=== PATIENT | female | born 1935 | race Caucasian/White ===

== ENCOUNTER 2018-11-12 11:01 | Emergency (ER) | payer MEDICARE ==
[2018-11-12 11:23] VITALS: BP 139/78
--- NOTE | 2018-11-12 11:50 | UC ---
Shortness of Breath HPI - HPI Summary HPI Summary: 82-year-old female presents with a two-week history of increased shortness of breath over the past 2 weeks. States she is becoming short of breath with minimal exertion and has been noticing increased swelling to her bilateral feet and ankles. She has a history of atrial fibrillation states that she has felt as if her heart was racing at times. Occasional nonproductive cough. Denies fever, chills, dizziness, weakness, diaphoresis, chest pain, abdominal pain, nausea, vomiting. - History of Current Complaint Chief Complaint: UCRespiratory Stated Complaint: SOB Time Seen by Provider: 11/12/18 11:07 - Allergy/Home Medications Allergies/Adverse Reactions: Allergies Allergy/AdvReac Type Severity Reaction Status Date / Time No Known Allergies Allergy Verified 11/12/18 11:23 Home Medications: Home Medications Atorvastatin* [Lipitor*] 10 mg PO 1700 11/12/18 [History Confirmed 11/12/18] Levothyroxine TAB* [Synthroid TAB*] 88 mcg PO 0800 11/12/18 [History Confirmed 11/12/18] Metoprolol Tartrate TAB* [Lopressor TAB*] 100 mg PO BID 11/12/18 [History Confirmed 11/12/18] Rivaroxaban TAB(*) [Xarelto 20 mg] 20 mg PO DAILY 11/12/18 [History Confirmed ] amLODIPine TAB* [Norvasc 5 mg TAB*] 10 mg PO DAILY 11/12/18 [History Confirmed 11/12/18] metFORMIN* [Glucophage 500 MG TAB *] 1,000 mg PO BID 11/12/18 [History Confirmed 11/12/18] prednisoLONE 1% OPHTH.SUSP* [Pred Forte 1%*] 1 drop .SEE ORDER DAILY 11/12/18 [ History Confirmed 11/12/18] PMH/Surg Hx/FS Hx/Imm Hx - Additional Past Medical History Additional PMH: Rheumatoid arthritis Endocrine History: Hypothyroidism Cardiovascular History: Cardiac Disease, Hypertension, Atrial Fibrillation - Surgical History Surgical History: Yes Surgery Procedure, Year, and Place: rotator cuff, carpal tunnel, cornea transplant - Family History Known Family History: Positive: Cardiac Disease, Hypertension - Social History Occupation: Retired Lives: Alone Alcohol Use: None Substance Use Type: None Smoking Status (MU): Never Smoked Tobacco Review of Systems All Other Systems Reviewed And Are Negative: Yes Constitutional: Negative: Fever, Chills Respiratory: Positive: Shortness Of Breath, Cough Cardiovascular: Positive: Palpitations. Negative: Chest Pain Gastrointestinal: Negative: Abdominal Pain, Vomiting, Nausea Musculoskeletal: Positive: Edema Neurological: Positive: Negative Is Patient Immunocompromised?: No Physical Exam - Summary Physical Exam Summary: GENERAL APPEARANCE: Well developed, well nourished, alert and cooperative, and appears to be in no acute distress. CARDIAC: Normal S1 and S2. No S3, S4 or murmurs. Rhythm is irregularly irregular. 1+ pitting edema to bilateral feet and ankles. There is no cyanosis or pallor. Extremities are warm and well perfused. Capillary refill is less than 2 seconds. LUNGS: Clear to auscultation and percussion without rales, rhonchi, wheezing or diminished breath sounds. ABDOMEN: Positive bowel sounds. Soft, nondistended, nontender. No guarding or rebound. No masses or hepatosplenomegally. MUSKULOSKELETAL: ROM intact to all extremities. No joint erythema or tenderness. Normal muscular development. Normal gait. SKIN: Skin normal color, texture and turgor with no lesions or eruptions. Triage Information Reviewed: Yes Vital Signs: Initial Vital Signs Temp 98.7 F 11/12/18 11:10 Pulse 100 11/12/18 11:10 Resp 16 11/12/18 11:10 BP 139/78 11/12/18 11:10 Pulse Ox 96 11/12/18 11:10 Vital Signs Reviewed: Yes Diagnostics - EKG Cardiac Rate: NL Cardiac Rhythm: AFib: Normal, LBBB: New Ectopy: None ST Segment: Normal EKG Comparison: Other - Comparison EKG from 2004. New onset of LBBB Shortness of Breath Dx - Course Course Of Treatment: 82-year-old female presents with a two-week history of increased shortness of breath over the past 2 weeks. States she is becoming short of breath with minimal exertion and has been noticing increased swelling to her bilateral feet and ankles. She has a history of atrial fibrillation states that she has felt as if her heart was racing at times. Occasional nonproductive cough. Denies fever, chills, dizziness, weakness, diaphoresis, chest pain, abdominal pain, nausea, vomiting. Afebrile. Vital signs stable. Exam reveals female patient in no acute distress, irregular heart rate without murmur or extra sounds, bilateral breath sounds clear, 1+ edema to bilateral feet and ankles, EKG shows atrial fibrillation with a left bundle branch block which is new when compared to EKG from 2005. I recommended that she be transferred via ambulance to the emergency room for further evaluation. The patient has declined ambulance transfer. The patient is clinically sober, free from distracting injury, appears to have insight and reasoning and in my judgement has capacity to make decisions. I have explained that I am concerned this may represent a recent myocardial infarction. I have explained my concerns and the patient has verbalized understanding of my concerns. I have recommended transfer to ED via ambulance for patient and public safety and that she could get much worse, could become critically ill and suffer disability and possibly . Patient states she is agreeable to ED evaluation but continues to refuse ambulance transfer at this time and therefore is leaving against medical advice. I spoke with BARRETT Goel in the ED and she will be expecting patient. - Differential Dx/Diagnosis Provider Diagnosis: Shortness of breath, Lower extremity edema Discharge - Sign-Out/Discharge Documenting (check all that apply): Patient Departure All imaging exams completed and their final reports reviewed: No Studies - Discharge Plan Condition: Guarded Disposition: AGAINST MEDICAL ADVICE Patient Education Materials: Dyspnea (ED) Referrals: No Primary Care Phys,NOPCP [Primary Care Provider] - Additional Instructions: I am advising that you transfer to the emergency room via ambulance for further evaluation. You have chosen to sign out against medical advice and drive yourself to the emergency room. - Billing Disposition and Condition Condition: GUARDED Disposition: Against Medical Advice
== END 2018-11-12 11:32 | disposition left against medical advice (07) ==
LOC: UCEAST 11:01
DX: R06.02 Shortness of breath (principal); R60.9 Edema, unspecified; E03.9 Hypothyroidism, unspecified; I10 Essential (primary) hypertension
CPT/HCPCS: 93005; 99212; G0463

== ENCOUNTER 2018-11-12 11:57 | Inpatient (IN) | payer MEDICARE ==
[2018-11-12 12:49] LABS: ABS Basophils 0.1 10^3/ul (0-0.2); ABS Eosinophils 0.1 10^3/ul (0-0.6); ABS Lymphocytes 2.6 10^3/ul (1.0-4.8); ABS Monocytes 0.7 10^3/ul (0-0.8); ABS Neutrophils 3.2 10^3/ul (1.5-7.7); ABS Nucleated RBC 0 10^3/ul; Eosinophil % 1.5 %; Hematocrit 39 % (35-47); Hemoglobin 12.7 g/dl (12.0-16.0); Mean Corpuscular HGB Conc 33 g/dl (31-36); Mean Corpuscular Hemoglobin 28 pg (27-31); Mean Corpuscular Volume 86 fL (80-97); Mean Platelet Volume 7.6 fL (7.4-10.4); Nucleated Red Blood Cells % 0.1; Platelet Count 196 10^3/ul (150-450); Red Blood Count 4.48 10^6/ul (4.00-5.40); Red Cell Distribution Width 16 % (10.5-15); White Blood Count 6.6 10^3/ul (3.5-10.8)
[2018-11-12 12:58] LABS: Activated Partial Thrombo Time 31.3 seconds (26.0-36.3); INR 1.16 (0.77-1.02)
--- NOTE | 2018-11-12 13:00 | ED ---
Shortness of Breath - HPI Summary HPI Summary: A 82 y/o female presents to the ED c/o SOB. In the ED room, the patient has a pulse of 112 BPM and O2 saturation of 94%. According to the patient, she has had SOB at rest and exertion, but she stated that she also has ankle swelling for the past three weeks. She stated she also has been experiencing a cough that lasted about a month with flem, but not currently. She denies any chest pain or tightness, fevers, diaphoresis, but does have chills. She also had no weight change recently. She did stated that her feet hurt. No PMHx of ND. Home Medications Medication Instructions Recorded Confirmed Type Atorvastatin* [Lipitor*] 10 mg PO 1700 11/12/18 11/12/18 History Levothyroxine TAB* [Synthroid TAB*] 88 mcg PO 0800 11/12/18 11/12/18 History Metoprolol Tartrate TAB* 100 mg PO BID 11/12/18 11/12/18 History [Lopressor TAB*] Rivaroxaban TAB(*) [Xarelto 20 mg] 20 mg PO DAILY 11/12/18 11/12/18 History amLODIPine TAB* [Norvasc 5 mg TAB*] 10 mg PO DAILY 11/12/18 11/12/18 History metFORMIN* [Glucophage 500 MG TAB 1,000 mg PO BID 11/12/18 11/12/18 History *] prednisoLONE 1% OPHTH.SUSP* [Pred 1 drop .SEE ORDER DAILY 11/12/18 11/12/18 History Forte 1%*] - History of Current Complaint Chief Complaint: EDShortnessOfBreath Time Seen by Provider: 11/12/18 12:30 Hx Obtained From: Patient Onset/Duration: Lasting Days, Still Present Timing: Constant Dyspnea At: Exertion Aggrevating Factors: Nothing Alleviating Factors: Nothing Associated Signs & Symptoms: Cough (Productive), Chills - Allergy/Home Medications Allergies/Adverse Reactions: Allergies Allergy/AdvReac Type Severity Reaction Status Date / Time No Known Allergies Allergy Verified 11/12/18 11:23 PMH/Surg Hx/FS Hx/Imm Hx Endocrine/Hematology History: Reports: Hx Diabetes, Hx Thyroid Disease Cardiovascular History: Reports: Hx Hypertension - Surgical History Surgery Procedure, Year, and Place: rotator cuff, carpal tunnel, cornea transplant Infectious Disease History: No Infectious Disease History: Denies: Traveled Outside the [place] in Last 30 Days - Family History Known Family History: Positive: Cardiac Disease, Hypertension - Social History Alcohol Use: None Substance Use Type: Reports: None Smoking Status (MU): Never Smoked Tobacco Review of Systems Positive: Chills. Negative: Fever, Skin Diaphoresis Negative: Erythema Negative: Sore Throat Negative: Chest Pain Positive: Shortness Of Breath, Cough Negative: Abdominal Pain, Vomiting, Nausea Negative: dysuria, hematuria Negative: Myalgia, Edema Negative: Rash Neurological: Other - NEGATIVE: DIZZINESS All Other Systems Reviewed And Are Negative: Yes Physical Exam - Summary Physical Exam Summary: Constitutional: Well-developed, Well-nourished, Alert. (-) Distressed Skin: Warm, Dry HENT: Normocephalic; Atraumatic Eyes: Conjunctiva normal Neck: Musculoskeletal ROM normal neck. (-) JVD, (-) Stridor, (-) Tracheal deviation Cardio: Rhythm regular, rate normal, Heart sounds normal; Intact distal pulses; The pedal pulses are 2+ and symmetric. Radial pulses are 2+ and symmetric. (-) Murmur Pulmonary/Chest wall: bilateral rales Abd: Soft, (-) epigastric tenderness, (-) Distension, (-) Guarding, (-) Rebound Musculoskeletal: 1+ pedal edema Lymph: (-) Cervical adenopathy Neuro: Alert, Oriented x3 Psych: Mood and affect Normal Triage Information Reviewed: Yes Vital Signs On Initial Exam: Initial Vitals Temp Pulse Resp BP Pulse Ox 98.5 F 100 20 137/85 97 11/12/18 12:12 11/12/18 12:12 11/12/18 12:12 11/12/18 12:12 11/12/18 12:12 Vital Signs Reviewed: Yes Diagnostics - Vital Signs Vital Signs Temp Pulse Resp BP Pulse Ox 11/12/18 12:12 98.5 F 100 20 137/85 97 - Laboratory Lab Results: Lab Results 11/12/18 11/12/18 Range/Units 12:42 12:42 WBC 6.6 (3.5-10.8) 10^3/ul RBC 4.48 (4.00-5.40) 10^6/ul Hgb 12.7 (12.0-16.0) g/dl Hct 39 (35-47) % MCV 86 (80-97) fL MCH 28 (27-31) pg MCHC 33 (31-36) g/dl RDW 16 H (10.5-15) % Plt Count 196 (150-450) 10^3/ul MPV 7.6 (7.4-10.4) fL Neut % (Auto) 48.8 % Lymph % (Auto) 39.0 % [place] % (Auto) 9.9 % Eos % (Auto) 1.5 % Baso % (Auto) 0.8 % Absolute Neuts (auto) 3.2 (1.5-7.7) 10^3/ul Absolute Lymphs (auto) 2.6 (1.0-4.8) 10^3/ul Absolute Monos (auto) 0.7 (0-0.8) 10^3/ul Absolute Eos (auto) 0.1 (0-0.6) 10^3/ul Absolute Basos (auto) 0.1 (0-0.2) 10^3/ul Absolute Nucleated RBC 0 10^3/ul Nucleated RBC % 0.1 INR (Anticoag Therapy) 1.16 H (0.77-1.02) APTT 31.3 (26.0-36.3) seconds Result Diagrams: 11/12/18 12:42 11/12/18 12:42 Lab Statement: Any lab studies that have been ordered have been reviewed, and results considered in the medical decision making process. - Radiology CXR Radiology Interpretation Completed By: Radiologist Summary of Radiographic Findings: NO EVIDENCE FOR ACUTE FINDING. ED PHYSICIAN REVIEWED THIS RADIOLOGY REPORT. - EKG 1220 Cardiac Rate: Other Rate - ATRIAL FIBRILLATION AT 105 BPM EKG Rhythm: Atrial Fibrillation - 105 BPM Summary of EKG Findings: NEGATIVE STEMI. Course/Dx - Course Course Of Treatment: A 82 y/o female presents to the ED c/o SOB. In the ED room , the patient has a pulse of 112 BPM and O2 saturation of 94%. According to the patient, she has had SOB at rest and exertion, but she stated that she also has ankle swelling for the past three weeks. She stated she also has been experiencing a cough that lasted about a month with flem, but not currently. She denies any chest pain or tightness, fevers, diaphoresis, but does have chills. She also had no weight change recently. She did stated that her feet hurt. No PMHx of ND. Physical examination findings significant for 1+ pedal edema and bilateral rales. An EKG revealed a atrial fibrillation rate of 105 BPM , negative STEMI. A CXR revealed no evidence for acute finding. Hematology, Chemistry, and coagulation screens were done. No significant laboratory abnormalities were found. Troponin was 0.01. In the ED course, the patient received Lasix and NTG. Patient care was discussed with hospitalist, Dr. King Palencia, who accepts patient for admission. Patient will be admitted with a diagnosis of CHF exacerbation. Patient is agreeable with this plan. - Diagnoses Provider Diagnoses: CHF exacerbation - Physician Notifications Discussed Care of Patient With: King Palencia Time Discussed With Above Provider: 13:06 Instructed by Provider To: Other - ACCEPTS PATIENT FOR ADMISSION. Discharge - Sign-Out/Discharge Documenting (check all that apply): Patient Departure - ADMIT, Sign-Out Patient - PALENCIA Signing out patient TO: King Palencia Receiving patient FROM: Aroldo Villatoro - Discharge Plan Condition: Stable Disposition: ADMITTED TO [facility] Referrals: No Primary Care Phys,NOPCP [Primary Care Provider] - - Attestation Statements Document Initiated by Scribe: Yes Documenting Scribe: Aleksandar Almonte Provider For Whom Scribe is Documenting (Include Credential): Aroldo Villatoro MD Scribe Attestation: Aleksandar Salinas, scribed for Aroldo Villatoro MD on 11/12/18 at 1343. Status of Scribe Document: Ready
[2018-11-12 13:10] LABS: Albumin/Globulin Ratio 1.5 (1-3); BUN/Creatinine Ratio 15.5 (8-20); Calcium 9.1 mg/dL (8.6-10.3); EGFR Non-African American 55.1 (>60); Globulin 2.6 g/dL (2-4); Potassium 4.3 mmol/L (3.5-5.0); Total Bilirubin 0.4 mg/dL (0.2-1.0); Total Protein 6.6 g/dL (6.4-8.9)
[2018-11-12] MEDS ORDERED: Furosemide IV* 10 MG/ML VIAL (40 MG) IV SLOW PU ONE (13:26)
[2018-11-12] MEDS ORDERED: Nitroglycerin 2% OINT* 1 GM PAK TOPICAL ONE (13:26)
[2018-11-12] MEDS ORDERED: Metoprolol Tartrate IV* 1 MG/ML 5 ML VIAL IV ONE (14:20)
[2018-11-12 14:48] LABS: HDL Cholesterol 36.5 mg/dL
[2018-11-12 15:04] LABS: Magnesium 1.7 mg/dL (1.9-2.7)
[2018-11-12] MEDS ORDERED: Magnesium Sulfate 2 GM IV* 2 GM/50 ML BAG IVPB ONE (15:09)
[2018-11-12 15:11] LABS: TSH (Thyroid Stimulating Horm) 3.65 mcIU/mL (0.34-5.60)
[2018-11-12 15:13] LABS: Free T4 1.33 ng/dL (0.61-1.12)
[2018-11-12] MEDS: Atorvastatin* 10 MG TAB PO SCH (16:22)
[2018-11-12] MEDS: Rivaroxaban TAB(*) 20 MG TAB PO SCH (16:53)
[2018-11-12] MEDS ORDERED: Metoprolol Tartrate IV* 1 MG/ML 5 ML VIAL IV PRN (17:53)
--- NOTE | 2018-11-12 17:54 | HP ---
HISTORY AND PHYSICAL: DATE OF ADMISSION: 11/12/18 ADMITTING PROVIDER: King Palencia MD. PRIMARY CARE PROVIDER: Dr. Ewa Sams, [facility]. OUTPATIENT REGISTERED NURSE CARDIOVASCULAR ICU: Dr. Graham. CHIEF COMPLAINT: Progressive shortness of breath, orthopnea, leg swelling, cough, and increased frequency of uncontrolled atrial fibrillation. HISTORY OF PRESENT ILLNESS: Yissel Nelson is an 82-year-old female with past medical history of paroxysmal atrial fibrillation, left bundle-branch block, non - insulin-dependent diabetes mellitus, hypertension, hyperlipidemia, hypothyroidism, who attests that in late August or early September developed a "bad cold" and has had a cough that never quite went away, that did not feel like her usual bronchitis like cough that she has had in the past. It was nonproductive. Over the last 2 or so weeks, she has felt more short of breath, has had a new swelling in her feet and increasing orthopnea requiring 2 and then for last 2 days 3 pillows overnight. She denies ever having any chest pain. She records her blood pressure and heart rate daily and she has noticed more days than not her heart rates have been in the low 100s, and on 11/03/18, it was in the 130s for most of the day. Blood pressures have been normotensive. She is on Xarelto and metoprolol tartrate 100 twice a day, Lipitor 10, and metformin 1000 mg b.i.d. in addition to amlodipine 10 mg daily. She is never a smoker. Father of a heart attack, his first, at age 78. She states that she had a followup scheduled next in March with Dr. Graham and told Dr. Sams about her increased frequency of AFib with RVR back in July. She sees her about every 4 months. In the ED, initial workup has included elevated BNP of 591, negative troponin of 0.01. Chest x-ray showed no acute process and heart rates initially 113, currently 120s to 130s in the room with AFib. She was referred to the hospitalist service for admission for new onset suspected CHF and uncontrolled atrial fibrillation. Her blood sugars have been fairly well controlled, attesting about 120s fasting and she has gone down to checking a couple of times a week. PAST MEDICAL HISTORY: Paroxysmal atrial fibrillation, on Xarelto; left bundle- branch block; [id number] diabetes mellitus (diagnosed about 8 years ago); questionable rheumatoid arthritis that is now thought not to have been the case but she was on several months of methotrexate back in 2016, her rheumatoid factor was negative; hypertension; hyperlipidemia; hypothyroidism. PAST SURGICAL HISTORY: Right rotator cuff repair, carpal tunnel surgery, cataract surgery as well. MEDICATIONS: Include: 1. Xarelto 20 mg p.o. q.p.m. 2. Metformin 1000 mg p.o. b.i.d. 3. Amlodipine 10 mg p.o. daily. 4. Metoprolol tartrate 100 mg p.o. b.i.d. 5. Levothyroxine 88 mcg p.o. daily. 6. Atorvastatin 10 mg p.o. daily. 7. Prednisolone 1% ophthalmic suspension each drop daily . ALLERGIES: No known drug allergies. FAMILY HISTORY: Father of his first and only heart attack at age 78. Her mother of breast cancer at 58. She has a sister who is a breast cancer survivor, alive at age 89. SOCIAL HISTORY: She is a never a smoker, never a drinker. No drug use. Her medical surrogate is her daughter Christine Sutherland. She does appear to be full code. She is retired from [employer]. REVIEW OF SYSTEMS: A complete 14-point review of systems is negative except as per HPI. She denies any fever. She does have chills on occasion. She attests her weight is 132 pounds and steady; she is 135 here today. PHYSICAL EXAMINATION GENERAL APPEARANCE: No acute distress. VITAL SIGNS: Temperature 98.5, heart rates currently in the 120s, respiratory rate 24, satting between 87% and 97% on room air, blood pressure 126/80. HEENT: Normocephalic, atraumatic. Pupils are equal, round, and reactive to light. Extraocular motions intact. No scleral icterus. Moist mucous membranes. Neck supple. No cervical lymphadenopathy. LUNGS: Clear to auscultation bilaterally with no wheezing, rales, or rhonchi. CARDIOVASCULAR: Irregularly irregular. No murmurs, rubs, or gallops. Positive JVD to angle of the mandible. ABDOMEN: Soft, nontender, nondistended. EXTREMITIES: Warm, well perfused. 1 to 2+ pitting edema of bilateral shins and ankles. SKIN: No itching, no rashes. NEUROLOGIC: Moving all extremities. Cranial nerves II through XII grossly intact. DIAGNOSTIC STUDIES AND LABORATORY DATA: White count 6.6, hemoglobin 12.7, hematocrit 39, platelets 296. INR 1.16. Sodium 139, potassium 4.3, chloride 105, BUN 15, creatinine 0.97, glucose 117, lactic acid 1.7, calcium 9.1, total bilirubin 0.40, AST 32, ALT 36, alk phos 121, troponin 0.01, BNP 591, albumin 4.0. Chest x-ray, no acute process. EKG with left bundle-branch block, unchanged, not new from Dr. Sams's notes. Rate 105 and 98 respectively. PVCs noted. ASSESSMENT AND PLAN: Yissel Nelson is an 82-year-old female with past medical history of paroxysmal atrial fibrillation, left bundle-branch block, non-insulin - dependent diabetes mellitus, hypertension, hyperlipidemia, hypothyroidism, presenting with 2 weeks of progressive shortness of breath, dyspnea on exertion , orthopnea, leg swelling, denies any chest pain. BNP is elevated at 591, but she is not requiring supplemental oxygen at this time. Her rates are currently intermittently poorly controlled and has intermittently been in the 110s more often than not when she checks at home and 1 episode in the 130s, presumed acute congestive heart failure in the setting of arrhythmia versus other etiology. We will get an echocardiogram, request records from Dr. Graham's office. Last echo was in March 2018, but we have no record of this. She denies a history of CHF. I am going to give her 5 Lopressor now, continue metoprolol tartrate 100 b.i.d., consider adding on diltiazem for further rate control if necessary. If hypotensive, consider digoxin or cardioversion. We will get strict I's and O's, daily weights, heart healthy diet, add on A1c and lipid panel. Troponins have been negative, she denies any chest pain, but it will be cycled. I will put her on telemetry. For the acute CHF, she has got 40 IV Lasix in the ED and will continue another dose of 20 later tonight and then convert to 40 p.o. in the morning. She is being admitted to observation status. She is a full code. Medical surrogate is Christine Sutherland, her daughter. [id number]/[facility] #: [id number] CHRIS
[2018-11-12] MEDS ORDERED: Furosemide IV* 10 MG/ML 2 ML VIAL (20 MG) IV ONE (19:00)
--- NOTE | 2018-11-12 19:00 | PRO ---
PRELIMINARY TRANSTHORACIC ECHOCARDIOGRAM: DATE OF SERVICE: 11/12/18 REFERRING PHYSICIAN: Dr. King Mckeon. DIAGNOSES: 1. Congestive heart failure 2. Shortness of breath. INDICATION: This is a preliminary echocardiogram report. Currently [facility] computer generated echocardiogram reporting system is experiencing technical limitations hence I am dictating a preliminary echocardiogram report after reviewing this echocardiogram study. Full report to follow. FINDINGS: Decreased left ventricular size with normal left ventricular ejection fraction, left ventricular ejection of 60% to 65% with mild-to- moderate concentric left ventricular hypertrophy. Septum 1.6 cm, posterior wall 1.2 cm. Normal right ventricular size and systolic function. Moderate mitral regurgitation. No aortic stenosis, no aortic insufficiency. Moderate tricuspid regurgitation with mild pulmonary hypertension. Estimated PA systolic pressure of 39 mmHg. No pulmonic insufficiency, no pulmonic stenosis, no pericardial effusion. Mild right atrial enlargement. Moderate left atrial enlargement. Pulmonary artery not well seen. Normal aortic root and ascending aortic size. IMPRESSION: 1. Decreased left ventricular size with normal left ventricular ejection fraction of 60% to 65% with [id number] concentric left ventricular hypertrophy. 2. Moderate mitral regurgitation. 3. Moderate tricuspid regurgitation. 4. Moderate left atrial enlargement. 5. Mild right atrial enlargement. 6. Mild pulmonary hypertension. There is no prior echocardiogram available to compare with this at this time. [id number]/[facility] #: [id number] MTDD
[2018-11-12] MEDS: Metoprolol Tartrate TAB* 100 MG TAB PO SCH (19:53)
[2018-11-13] MEDS: Levothyroxine TAB* 88 MCG TAB PO SCH (05:43)
[2018-11-13 07:15] LABS: BUN/Creatinine Ratio 14.3 (8-20); Calcium 8.8 mg/dL (8.6-10.3); EGFR Non-African American 59.3 (>60); Potassium 3.4 mmol/L (3.5-5.0)
[2018-11-13] MEDS: Metoprolol Tartrate TAB* 100 MG TAB PO SCH ×2 (08:12→20:37)
[2018-11-13] MEDS: Furosemide TAB* 40 MG PO SCH (08:12)
[2018-11-13] MEDS: prednisoLONE 1% OPHTH.SUSP* 5 ML OPHTH.SUSP BOTH EYES SCH (10:41)
--- NOTE | 2018-11-13 15:40 | PN ---
Subjective Date of Service: 11/13/18 Interval History: Reports some improvement in breathing Objective Active Medications: Atorvastatin Calcium (Lipitor*) 10 mg PO 1700 [facility] Last Admin: 11/12/18 16:22 Dose: 10 mg Furosemide (Lasix Tab*) 40 mg PO DAILY [facility] Last Admin: 11/13/18 08:12 Dose: 40 mg Levothyroxine Sodium (Synthroid Tab*) 88 mcg PO 0600 [facility] Last Admin: 11/13/18 05:43 Dose: 88 mcg Metoprolol Tartrate (Lopressor Tab*) 100 mg PO BID [facility] Last Admin: 11/13/18 08:12 Dose: 100 mg Metoprolol Tartrate (Lopressor Iv*) 5 mg IV Q1H PRN PRN Reason: BLOOD PRESSURE Prednisolone Acetate (Pred Forte 1%*) 1 drop BOTH EYES DAILY [facility] Last Admin: 11/13/18 10:41 Dose: 1 drop Rivaroxaban (Xarelto(*)) 20 mg PO QPM [facility] Last Admin: 11/12/18 16:53 Dose: 20 mg Vital Signs - 8 hr 11/13/18 11/13/18 11/13/18 07:36 11:38 12:09 Temperature 97.4 F 97.9 F Pulse Rate 114 90 Respiratory 16 16 Rate Blood Pressure 124/62 111/61 (mmHg) O2 Sat by Pulse 94 96 Oximetry Oxygen Devices in Use Now: None Eyes: No Scleral Icterus Ears/Nose/Mouth/Throat: NL Teeth, Lips, Gums Neck: NL Appearance and Movements; NL JVP Respiratory: Symmetrical Chest Expansion and Respiratory Effort, - - Bibasilar crackles Cardiovascular: NL Sounds; No Murmurs; No JVD Abdominal: NL Sounds; No Tenderness; No Distention Extremities: - - Edema present Neurological: Alert and Oriented x 3 Result Diagrams: 11/12/18 12:42 11/13/18 06:32 Additional Lab and Data: Lab Results 11/12/18 11/12/18 Range/Units 12:42 12:42 WBC 6.6 (3.5-10.8) 10^3/ul RBC 4.48 (4.00-5.40) 10^6/ul Hgb 12.7 (12.0-16.0) g/dl Hct 39 (35-47) % MCV 86 (80-97) fL MCH 28 (27-31) pg MCHC 33 (31-36) g/dl RDW 16 H (10.5-15) % Plt Count 196 (150-450) 10^3/ul MPV 7.6 (7.4-10.4) fL Neut % (Auto) 48.8 % Lymph % (Auto) 39.0 % [place] % (Auto) 9.9 % Eos % (Auto) 1.5 % Baso % (Auto) 0.8 % Absolute Neuts (auto) 3.2 (1.5-7.7) 10^3/ul Absolute Lymphs (auto) 2.6 (1.0-4.8) 10^3/ul Absolute Monos (auto) 0.7 (0-0.8) 10^3/ul Absolute Eos (auto) 0.1 (0-0.6) 10^3/ul Absolute Basos (auto) 0.1 (0-0.2) 10^3/ul Absolute Nucleated RBC 0 10^3/ul Nucleated RBC % 0.1 INR (Anticoag Therapy) 1.16 H (0.77-1.02) APTT 31.3 (26.0-36.3) seconds Assess/Plan/Problems-Billing Assessment: - Patient Problems (1) CHF exacerbation Current Visit: Yes Status: Acute Code(s): I50.9 - HEART FAILURE, UNSPECIFIED SNOMED Code(s): 06624741 Comment: New diagnosis of chf bnp elevated,volume overload and consistent clinical exam echo reviewed ef 60-65%, diastolic in nature recd iv lasix and transitioned to lasix 40 mg po q daily.will eval progress on this (2) Atrial fibrillation with RVR Current Visit: Yes Status: Acute Code(s): I48.91 - UNSPECIFIED ATRIAL FIBRILLATION SNOMED Code(s): 876052124100073 Comment: h/o paroxysmal a fib on anticoag as op,continued recd iv lopressor and currently on metoprolol will monitor on tele
[2018-11-13] MEDS: Rivaroxaban TAB(*) 20 MG TAB PO SCH (16:17)
[2018-11-13] MEDS: Atorvastatin* 10 MG TAB PO SCH (16:17)
[2018-11-14] MEDS: Levothyroxine TAB* 88 MCG TAB PO SCH (05:13)
[2018-11-14 07:17] LABS: ABS Basophils 0.1 10^3/ul (0-0.2); ABS Eosinophils 0.2 10^3/ul (0-0.6); ABS Lymphocytes 3.2 10^3/ul (1.0-4.8); ABS Monocytes 0.6 10^3/ul (0-0.8); ABS Neutrophils 2.2 10^3/ul (1.5-7.7); ABS Nucleated RBC 0 10^3/ul; Eosinophil % 2.5 %; Hematocrit 38 % (35-47); Hemoglobin 12.4 g/dl (12.0-16.0); Lymphocyte % 51.4 %; Mean Corpuscular HGB Conc 33 g/dl (31-36); Mean Corpuscular Hemoglobin 28 pg (27-31); Mean Corpuscular Volume 86 fL (80-97); Mean Platelet Volume 7.9 fL (7.4-10.4); Nucleated Red Blood Cells % 0.2; Platelet Count 173 10^3/ul (150-450); Red Blood Count 4.43 10^6/ul (4.00-5.40); Red Cell Distribution Width 16 % (10.5-15); White Blood Count 6.2 10^3/ul (3.5-10.8)
[2018-11-14 07:35] LABS: BUN/Creatinine Ratio 17.2 (8-20); Calcium 9.2 mg/dL (8.6-10.3); EGFR Non-African American 53.8 (>60)
[2018-11-14] MEDS: Metoprolol Tartrate TAB* 100 MG TAB PO SCH ×2 (09:18→20:16)
[2018-11-14] MEDS: prednisoLONE 1% OPHTH.SUSP* 5 ML OPHTH.SUSP BOTH EYES SCH (09:18)
[2018-11-14] MEDS: Furosemide TAB* 40 MG PO SCH (09:18)
--- NOTE | 2018-11-14 14:04 | PN ---
Subjective Date of Service: 11/14/18 Interval History: Reports feeling well.SOB improved Objective Active Medications: Atorvastatin Calcium (Lipitor*) 10 mg PO 1700 [facility] Last Admin: 11/13/18 16:17 Dose: 10 mg Furosemide (Lasix Tab*) 40 mg PO DAILY [facility] Last Admin: 11/14/18 09:18 Dose: 40 mg Levothyroxine Sodium (Synthroid Tab*) 88 mcg PO 0600 [facility] Last Admin: 11/14/18 05:13 Dose: 88 mcg Metoprolol Tartrate (Lopressor Tab*) 100 mg PO BID [facility] Last Admin: 11/14/18 09:18 Dose: 100 mg Metoprolol Tartrate (Lopressor Iv*) 5 mg IV Q1H PRN PRN Reason: BLOOD PRESSURE Prednisolone Acetate (Pred Forte 1%*) 1 drop BOTH EYES DAILY [facility] Last Admin: 11/14/18 09:18 Dose: 1 drop Rivaroxaban (Xarelto(*)) 20 mg PO QPM [facility] Last Admin: 11/13/18 16:17 Dose: 20 mg Vital Signs - 8 hr 11/14/18 11/14/18 11/14/18 07:36 08:00 11:50 Temperature 98.0 F 98.1 F Pulse Rate 115 98 Respiratory 16 16 16 Rate Blood Pressure 119/77 108/74 (mmHg) O2 Sat by Pulse 98 97 Oximetry Oxygen Devices in Use Now: None Ears/Nose/Mouth/Throat: NL Teeth, Lips, Gums Neck: NL Appearance and Movements; NL JVP Respiratory: Symmetrical Chest Expansion and Respiratory Effort, Clear to Auscultation Cardiovascular: NL Sounds; No Murmurs; No JVD Abdominal: NL Sounds; No Tenderness; No Distention Extremities: - - Edema improving Skin: No Rash or Ulcers Neurological: Alert and Oriented x 3 Result Diagrams: 11/14/18 06:47 11/14/18 06:47 Additional Lab and Data: Lab Results 11/12/18 11/12/18 Range/Units 12:42 12:42 WBC 6.6 (3.5-10.8) 10^3/ul RBC 4.48 (4.00-5.40) 10^6/ul Hgb 12.7 (12.0-16.0) g/dl Hct 39 (35-47) % MCV 86 (80-97) fL MCH 28 (27-31) pg MCHC 33 (31-36) g/dl RDW 16 H (10.5-15) % Plt Count 196 (150-450) 10^3/ul MPV 7.6 (7.4-10.4) fL Neut % (Auto) 48.8 % Lymph % (Auto) 39.0 % [place] % (Auto) 9.9 % Eos % (Auto) 1.5 % Baso % (Auto) 0.8 % Absolute Neuts (auto) 3.2 (1.5-7.7) 10^3/ul Absolute Lymphs (auto) 2.6 (1.0-4.8) 10^3/ul Absolute Monos (auto) 0.7 (0-0.8) 10^3/ul Absolute Eos (auto) 0.1 (0-0.6) 10^3/ul Absolute Basos (auto) 0.1 (0-0.2) 10^3/ul Absolute Nucleated RBC 0 10^3/ul Nucleated RBC % 0.1 INR (Anticoag Therapy) 1.16 H (0.77-1.02) APTT 31.3 (26.0-36.3) seconds Assess/Plan/Problems-Billing Assessment: - Patient Problems (1) CHF exacerbation Current Visit: Yes Status: Acute Code(s): I50.9 - HEART FAILURE, UNSPECIFIED SNOMED Code(s): 42734566 Comment: New diagnosis of chf bnp elevated,volume overload and consistent clinical exam echo reviewed ef 60-65%, diastolic in nature recd iv lasix and transitioned to lasix 40 mg po q daily.will eval progress on this (2) Atrial fibrillation with RVR Current Visit: Yes Status: Acute Code(s): I48.91 - UNSPECIFIED ATRIAL FIBRILLATION SNOMED Code(s): 699598076766611 Comment: h/o paroxysmal a fib on anticoag as op,continued recd iv lopressor and currently on metoprolol 100 mg po bid with HR controlled will monitor on tele Status and Disposition: If pt does well on this regimen, can possibly be discharged in am on PO diuretics
[2018-11-14] MEDS: Rivaroxaban TAB(*) 20 MG TAB PO SCH (16:41)
[2018-11-14] MEDS: Atorvastatin* 10 MG TAB PO SCH (16:41)
[2018-11-15] MEDS: Levothyroxine TAB* 88 MCG TAB PO SCH (06:04)
[2018-11-15 06:53] LABS: ABS Basophils 0 10^3/ul (0-0.2); ABS Eosinophils 0.1 10^3/ul (0-0.6); ABS Lymphocytes 3.3 10^3/ul (1.0-4.8); ABS Monocytes 0.6 10^3/ul (0-0.8); ABS Neutrophils 2.1 10^3/ul (1.5-7.7); ABS Nucleated RBC 0 10^3/ul; Eosinophil % 2.1 %; Hematocrit 40 % (35-47); Hemoglobin 12.9 g/dl (12.0-16.0); Lymphocyte % 53.8 %; Mean Corpuscular HGB Conc 33 g/dl (31-36); Mean Corpuscular Hemoglobin 28 pg (27-31); Mean Corpuscular Volume 87 fL (80-97); Mean Platelet Volume 8.1 fL (7.4-10.4); Nucleated Red Blood Cells % 0.1; Platelet Count 176 10^3/ul (150-450); Red Blood Count 4.54 10^6/ul (4.00-5.40); Red Cell Distribution Width 16 % (10.5-15); White Blood Count 6.2 10^3/ul (3.5-10.8)
[2018-11-15 07:04] LABS: BUN/Creatinine Ratio 20.6 (8-20); Calcium 9.4 mg/dL (8.6-10.3); EGFR Non-African American 55.1 (>60); Potassium 3.9 mmol/L (3.5-5.0)
[2018-11-15] MEDS: prednisoLONE 1% OPHTH.SUSP* 5 ML OPHTH.SUSP BOTH EYES SCH (08:17)
[2018-11-15] MEDS: Metoprolol Tartrate TAB* 100 MG TAB PO SCH (08:17)
[2018-11-15] MEDS: Furosemide TAB* 40 MG PO SCH (08:17)
--- NOTE | 2018-11-15 11:01 | ECHO ---
Patient: BELGICA [facility] Rec#: [id number] : 1935 Date: 11/12/2018 Age: 82y Height: 150 cm / 59.1 in Weight: 61.2 kg / 134.9 lbs Sex: F BSA: 1.6 Room#: [facility] Admit Date#: 11/12/2018 Type: Inpatient Referring: King Palencia Reading: Scooter Leblanc MD Salesperson Handbags: Kaylin Flood RN RDCS CC: Ewa Sams MD Transthoracic Echocardiogram Indication: CHF, SOB BP: 126/80 HR: 124 Rhythm: A-Fib Findings History: Atrial fibrillation, hypothyroid Technical Comments: The study quality is fair. Of note, due to IT issues, this final echocardiogram report was unable to completed until today. A holding echo report had been dictated into scoo mobility by myself after review of the study on the date of the study. Left Ventricle: The left ventricular chamber size is decreased. Mild to moderate concentric left ventricular hypertrophy is observed. Global left ventricular wall motion and contractility are within normal limits. There is normal left ventricular systolic function. The estimated ejection fraction is 60-65%. The assessment of diastolic function is non-diagnostic. Left Atrium: The left atrium is moderately dilated. Right Ventricle: The right ventricular cavity size is normal. The right ventricular global systolic function is normal. Right Atrium: The right atrium is mildly dilated. Aortic Valve: The aortic valve is trileaflet. The aortic valve leaflets are mildly thickened. There is no evidence of aortic regurgitation. There is no evidence of aortic stenosis. Mitral Valve: The mitral valve leaflets are mildly thickened. There is moderate mitral regurgitation. Tricuspid Valve: The tricuspid valve leaflets are normal. There is moderate tricuspid regurgitation. There is evidence of mild pulmonary hypertension. Pulmonic Valve: The pulmonic valve appears normal. There is trace to mild pulmonic regurgitation. There is no pulmonic stenosis. Pericardium: There is no significant pericardial effusion. Aorta: There is no dilatation of the ascending aorta. There is no dilatation of the aortic arch. The aortic root is normal in size. Pulmonary Artery: The main pulmonary artery is not well visualized. Venous: The inferior vena cava appears normal in size. There is a greater than 50% respiratory change in the inferior vena cava dimension. Conclusions There is normal left ventricular systolic function. The estimated ejection fraction is 60-65%. The left ventricular chamber size is decreased. The left atrium is moderately dilated. The right atrium is mildly dilated. There is moderate mitral regurgitation. There is moderate tricuspid regurgitation. There is evidence of mild pulmonary hypertension. There is no prior echocardiogram available to compare with at this time. Measurements Name Value Normal Range RVIDd (AP) MM 0.72 cm - Name Value Normal Range RVIDd (AP) 2D 2.1 cm (0.9 - 2.6) RVDdMajor (2D) 3.2 cm (2.2 - 4.4) RAd ISD 4CH 5.2 cm (3.4 - 4.9) RA (A4C)W 4.3 cm (2.9 - 4.6) IVSd (2D) 1.6 cm (0.6 - 1) LVPWd (2D) 1.2 cm (0.6 - 1) LVIDd (2D) 2.2 cm (3.6 - 5.4) LVIDs (2D) 1.6 cm - LV FS (2D) 27 % (25 - 45) Aortic Annulus 1.9 cm (1.4 - 2.6) Ao root diameter (2D) 3.3 cm (2.1 - 3.5) Ascending Ao 2.8 cm (2.1 - 3.4) Aortic arch 2 cm (1.8 - 3.4) LA dimension (AP) 2D 3.9 cm (2.3 - 3.8) LAd ISD 4CH 6 cm (2.9 - 5.3) LA ISD 4CH W 4.5 cm (2.5 - 4.5) Name Value Normal Range MV E-wave Vmax 1.4 m/sec - MV deceleration time 160 msec - LV septal e' Vmax 0.08 m/sec - LV lateral e' Vmax 0.08 m/sec - LV E:e' septal ratio 17.5 ratio - LV E:e' lateral ratio 17.5 ratio - Name Value Normal Range AV Vmax 1 m/sec - AV VTI 17.7 cm - AV peak gradient 4 mmHg - AV mean gradient 3 mmHg - LVOT Vmax 0.9 m/sec - LVOT VTI 15.7 cm - LVOT peak gradient 3 mmHg - LVOT mean gradient 2 mmHg - Name Value Normal Range TR Vmax 3 m/sec - TR peak gradient 36 mmHg - RAP 3 mmHg - RVSP 39 mmHg - IVC diameter 1.7 cm - Name Value Normal Range PV Vmax 0.72 m/sec -
[2018-11-15 11:49] VITALS: BP 115/62
[2018-11-15] MEDS ORDERED: Rivaroxaban TAB(*) 15 MG PO SCH (18:00)
--- NOTE | 2018-11-16 07:14 | DS ---
DISCHARGE SUMMARY: DATE OF ADMISSION: 11/13/18 DATE OF DISCHARGE: 11/15/18 ADMITTING PROVIDER: King Palencia MD ATTENDING PHYSICIAN ON DAY OF DISCHARGE: King Palencia MD PRIMARY CARE PROVIDER: Dr. Ewa Sams of [place]. OUTPATIENT INDUSTRIAL CONTROLS TECHNICIAN: Dr. Raghavendra Grhaam. CHIEF COMPLAINT: Progressive shortness of breath, orthopnea, leg swelling, cough, increased frequency of poor rate control of her atrial fibrillation. PRINCIPAL DIAGNOSES: 1. Acute congestive heart failure exacerbation in the setting of atrial fibrillation with RVR. 2. Moderate mitral valve regurgitation. 3. Moderate tricuspid valve regurgitation. 4. Atrial fibrillation with rapid ventricular response. HISTORY OF PRESENT ILLNESS/HOSPITAL COURSE: Yissel Nelson is an 82-year-old female with past medical history of paroxysmal atrial fibrillation, on Xarelto, left bundle-branch block, non-insulin dependent diabetes mellitus, hypertension , hyperlipidemia, hypothyroidism, who since late August had a "bad cold" and cough that never quite went away. She had 2 weeks of progressive shortness of breath, new swelling in her feet and orthopnea requiring 2 and then 3 pillows overnight. She noticed heart rates largely in the low 100s, and on 11/03/18, at 130s. In the ED, she had an initial BNP of 591 and heart rates in the 120s to 130s. She was admitted for new onset congestive heart failure, had a transthoracic echocardiogram on 11/13/18 which showed ejection fraction of 60% to 65%, non-diastolic function assessment, moderate mitral regurgitation, moderate tricuspid regurgitation, evidence of mild pulmonary hypertension with an RVSP of 39 mmHg, left atrium mildly dilated, right atrium mildly dilated. She received IV Lasix and then transitioned to p.o. 40 mg daily. Her thyroid was checked and TSH was within normal limits of 3.65, free T4 was high at 1.33 and total T3 was low at 76. Magnesium was replaced, her edema improved each day , and she was weaned off supplemental oxygen. Her weight fell from 59.37 kg on admission to 56.84 kg on discharge. She is being discharged on Lasix 20 mg daily. Her heart rate has also improved, currently in the mid 90s to low 100s. Consideration for diltiazem was entertained, but with regard to her Xarelto she should follow up with Dr. Graham and Dr. Sams as an outpatient to have repeat BMP. DISCHARGE MEDICATIONS: Include: 1. Atorvastatin 10 mg daily. 2. Lasix 20 mg p.o. daily (new). 3. Levothyroxine 88 mcg at 0800. 4. Metoprolol tartrate 100 mg p.o. b.i.d. 5. Rivaroxaban (Xarelto ) 20 mg p.o. daily. 6. Prednisolone 1% ophthalmic suspension 1 drop daily. 7. Metformin 1000 mg p.o. b.i.d. FOLLOWUP: The patient already has scheduled followup with Dr. Sams on . I have asked her to try to move this up to be seen within 4 and 10 days. She has a followup with Dr. Graham on 11/24/18. She should have a BMP checked at that time to assess her kidney function. I have asked her to record her weights daily and call both Dr. Sams and Dr. Graham's office if a rise of more than 3 pounds in 1 day or 5 pounds in 1 week. Also, to continue to record her heart rates in her log book. DISCHARGE DIET: Carbohydrate consistent, heart healthy, unchanged. TIME SPENT: Time spent on discharge 35 minutes. [id number]/[facility] #: [id number] MTDD
== END 2018-11-15 15:58 | disposition home or self-care (01) | DRG 293 ==
LOC: ED 11:57 → MED 13:36 → MEDTELE 13:37 → OBSVTOIN 11-13 11:34
PROVIDERS: ADMIT Internal Medicine; ATTEND Internal Medicine
PROC: B24BZZZ Ultrasonography of Heart with Aorta (ICD-10-PCS; principal; 2018-11-12)
DX: I11.0 Hypertensive heart disease with heart failure (principal); I50.9 Heart failure, unspecified; I48.0 Paroxysmal atrial fibrillation; E03.9 Hypothyroidism, unspecified; I44.7 Left bundle-branch block, unspecified; I10 Essential (primary) hypertension; E78.5 Hyperlipidemia, unspecified; I27.20 Pulmonary hypertension, unspecified; I08.1 Rheumatic disorders of both mitral and tricuspid valves; E11.9 Type 2 diabetes mellitus without complications; Z94.7 Corneal transplant status; Z82.49 Family history of ischemic heart disease and other diseases of the circulatory system; Z98.49 Cataract extraction status, unspecified eye; Z80.3 Family history of malignant neoplasm of breast; Z79.84 Long term (current) use of oral hypoglycemic drugs; Z79.52 Long term (current) use of systemic steroids; Z79.01 Long term (current) use of anticoagulants
CPT/HCPCS: 36415; 71045; 80048; 80053; 80061; 83036; 83605; 83735; 83880; 84439; 84443; 84479; 84484; 85025; 85610; 85730; 93005; 93306; 99284; A9270-GY; G0378; G8978-GP-CH; G8979-GP-CH; G8980-GP-CH; J1940; J3475; J3490